=== PATIENT | male | born 1950 | race Caucasian/White ===

== ENCOUNTER 2016-04-14 07:08 | Day surgery (SDC) | payer OTHER ==
[2016-04-10 11:28] VITALS: BMI 25.8
[~2016-04-14 07:08] MED LIST: LACTATED RINGERS 1,000 ML IV SCH; LIDOCAINE 1% 20 ML VIAL (10MG/ML) FOR IV START INTRADERMA PRN
[2016-04-14 08:18] VITALS: TEMP 98.1
[2016-04-14] MEDS ORDERED: PROPOFOL 10 MG/ML 20 ML VIAL IV ONE (08:35)
--- NOTE | 2016-04-14 09:12 | P.PCN ---
Date of Procedure: 04/14/16 Procedure(s) Performed: Procedure: Total colonoscopy. Preoperative diagnosis: Screening for neoplasia, patient has family history of colon cancer in his father. Postoperative diagnosis: Mild diverticulosis with no evidence of acute diverticulitis, strictures, polyps or cancer. Preparation: HalfLytely prep. Sedation: Was provided by anesthesia. Brief clinical history: The patient is a 65-year-old male who is referred for this evaluation for screening for neoplasia because of family history of colon cancer in his father. He had his first exam around 6 years ago. The patient has no abdominal complaints, bleeding or anemia. Procedure: With the patient on his left lateral decubitus position and after informed consent and adequate sedation, the perianal area was inspected and it did not show any fissures or fistulas. There were no masses felt on digital rectal examination. The Olympus CFQ 160L video colonoscope was initially used, however, I was not able to advance it safely in the distal sigmoid area so I exchanged it for a pediatric colonoscope. The Olympus PCF H180 AL videocolonoscope was then inserted in the rectum in the usual fashion and advanced through the sigmoid with no difficulty. The endoscope was advanced to the cecum. The mucosa appeared healthy. There was an occasional diverticular orifice seen on the right side but there was no evidence of acute diverticulitis or strictures. No obvious diverticular disease was seen on the left side. No polyps or tumors were noted. I retroflexed endoscope in the rectum before the endoscope was withdrawn. The patient tolerated the procedure well. Plan: The patient was reassured. Discussed dietary measures. He will follow up with you as planned and I recommended repeat exam in 5 years.
[2016-04-14 09:25] VITALS: BP 117/69; PULSE 88; RESP 18
== END 2016-04-14 09:42 | disposition home or self-care (01) ==
LOC: ORWHC2ENDO 07:08
DX: Z12.11 Encounter for screening for malignant neoplasm of colon (principal); K57.30 Diverticulosis of large intestine without perforation or abscess without bleeding; Z80.0 Family history of malignant neoplasm of digestive organs; I10 Essential (primary) hypertension; F41.9 Anxiety disorder, unspecified; G43.909 Migraine, unspecified, not intractable, without status migrainosus; E78.5 Hyperlipidemia, unspecified; M06.9 Rheumatoid arthritis, unspecified; Z79.899 Other long term (current) drug therapy
CPT/HCPCS: J2704; G0105; 45378; 99153

== ENCOUNTER → 2020-12-07 | Outpatient (CLI) | payer MEDICARE ==
--- NOTE | 2020-12-08 09:14 | MR ---
EXAMINATION TYPE: MR cspine/lspine wo con DATE OF EXAM: 12/07/2020 COMPARISON: Prior MRI lumbar spine July 25, 2013 HISTORY: Spondylosis, radiculopathy, headache, and neck pain. TECHNIQUE: Multiplanar, multisequence imaging of the cervical and lumbar spine are performed without IV contrast. FINDINGS: C-SPINE: FINDINGS: There is levoconvex scoliosis centered mid cervical spine and dextroconvex scoliosis center ed visualized upper thoracic spine. Sagittal images of the cervical spine show the craniocervical bryan ction to appear within normal limits. The cervical and upper thoracic spinal cord is normal in calib er and signal. The vertebral body heights are normal. Slight grade 1 retrolisthesis C2 on C3. Modera te disc space narrowing C2-C3. Yrzy-sa-ncudwrdi disc space narrowing C4-C5 and C6-C7 levels. Moderate to severe multilevel anterior spurring. The bone marrow signal intensity is overall heterogeneous wi th multiple areas of Modic type I and type II endplate changes. Axial images show subtle spondylolisthesis and uncovertebral facet degenerative changes causing mild bilateral neural foraminal narrowing. Axial images at C3-C4 level cervical vertebral facet degenerative changes with broad-based posterior disc protrusion, there is advanced right and moderate left-sided neural foraminal narrowing. Axial images at C4-C5 level showed broad based posterior disc protrusion effacing anterior thecal sac with uncovertebral facet degenerative changes, there is effacement of the anterior thecal sac and ad vanced bilateral neural foraminal narrowing. Axial images at C5-C6 levels. Uncovertebral facet degenerative changes with broad-based posterior dis c protrusion, there is effacement of the anterior thecal sac and advanced bilateral neural foraminal narrowing. Axial images at the C6-C7 level show right paracentral disc protrusion with some uncovertebral facet degenerative changes causing moderate bilateral neural foraminal narrowing. Axial images at C7-T1 level show mild broad-based posterior disc protrusion with mild to moderate cristiano ateral neural foraminal narrowing. IMPRESSION: Scoliosis with multilevel fairly moderate to advanced multilevel degenerative changes as detailed above. L-SPINE: Sagittal images of the lumbar spine show vertebral body heights to remain satisfactory. Stable slight grade 1 anterolisthesis L3 on L4. Increased multilevel disc desiccation. Persistent moderate disc sp rene narrowing L3-L4 level . Persistent mild to moderate multilevel anterior spurring. The conus medul alfie is normal in position and signal extending inferior L1 level. The bone marrow signal intensity is within normal limits. Axial images at T12-L1 remain within normal limits. Axial images at L1-L2 level show new left paracentral disc protrusion and mild facet arthropathy bila terally. Mild effacement anterior thecal sac. Patent bilateral neural foramina. Axial images at L2-L3 level show new [id number]-yn-vfydqqjx broad disc bulge with focal central disc protru daria. There is jyfo-of-rjtsuycs facet arthropathy and ligamentum flavum hypertrophy. There is effacem ent of the anterior thecal sac and moderate bilateral anterior inferior neuroforaminal narrowing, lef t greater than right. Encroachment on the foraminal left L2 nerve difficult to exclude. Axial images at L3-L4 level redemonstrate spondylolisthesis with more prominent moderate to severe br oad-based posterior disc protrusion. There is moderate to severe facet arthropathy and ligamentum fla vum hypertrophy. There is increasing spinal canal effacement of stenosis at this level axial image 13 . There is moderate right and mild to moderate left-sided neural foraminal narrowing. Findings progre ssed from prior. Axial images at L4-L5 level shows mild/moderate facet arthropathy and ligamentum flavum hypertrophy. There is focal central disc protrusion mildly effacing anterior thecal sac. There is moderate right a nd mild to moderate left-sided neural foraminal narrowing. Findings progressed from prior. Axial images at L5-S1 level show mtdo-lp-icyenoyg facet arthropathy bilaterally. Spinal canal is pres erved. Patent bilateral neural foramina. No significant change from prior. A simple appearing thin-walled 1.9 cm cyst posteriorly right kidney image 27 slightly increased in si ze from prior. IMPRESSION: Stable L3-L4 spondylolisthesis. Multilevel degenerative changes as detailed above with in terval degenerative progression from 2014 MRI noted
== END | disposition home or self-care (01) ==
LOC: RADMRIMAIN 07:56
PROVIDERS: ATTEND Family Medicine
DX: M51.16 Intervertebral disc disorders with radiculopathy, lumbar region (principal); M43.16 Spondylolisthesis, lumbar region; M47.26 Other spondylosis with radiculopathy, lumbar region; M50.223 Other cervical disc displacement at C6-C7 level; M47.22 Other spondylosis with radiculopathy, cervical region; M43.12 Spondylolisthesis, cervical region; M41.82 Other forms of scoliosis, cervical region
CPT/HCPCS: 72141; 72148

== ENCOUNTER → 2020-12-18 | Outpatient (CLI) | payer OTHER ==
--- NOTE | 2020-12-18 12:10 | US ---
EXAMINATION TYPE: US duplex aorta DATE OF EXAM: 12/18/2020 COMPARISON: NONE CLINICAL HISTORY: 70-year-old male Z13.6 SCREENING FOR CARDIOVASCULAR DISEASE. AAA screening. TECHNIQUE: Multiple sonographic images of the abdominal aorta are obtained. FINDINGS: EXAM MEASUREMENTS: Abdominal Aorta: Proximal: 2.2 x 2.2 cm. Mid: 2.1 x 1.7 cm. Distal: 1.7 x 2.0 cm. Bifurcation: Right: 1.1 x 1.2 cm. Left: 1.0 x 1.2 cm. Mild atherosclerotic irregularity is present. IMPRESSION: Atherosclerotic irregularity but without any sonographic evidence for AAA.
== END | disposition home or self-care (01) ==
LOC: RADUSWWP 07:00
PROVIDERS: ATTEND Family Medicine
DX: Z13.6 Encounter for screening for cardiovascular disorders (principal); I70.0 Atherosclerosis of aorta
CPT/HCPCS: 93979

== ENCOUNTER → 2024-01-20 | Outpatient (CLI) | payer MEDICARE ==
--- NOTE | 2024-01-20 14:59 | MR ---
EXAMINATION TYPE: MR cspine/lspine wo con DATE OF EXAM: 01/20/2024 COMPARISON: 12/07/2020 HISTORY: 73-year-old male M43.16 Neck pain, left arm pain. Low back pain that radiates down left leg. TECHNIQUE: Multiplanar, multisequence imaging of the cervical and lumbar spine is performed without I V contrast. FINDINGS: CERVICAL SPINE: Chronic patchy white matter signal changes incidentally noted within the bernice. No craniocervical junction abnormality, predental space widening, or prevertebral soft tissue swellin g. There is moderate degenerative disc disease throughout with desiccated, narrowed, and bulging discs w ith disc osteophyte complex formation. Additional ligamentum flavum thickening throughout the upper and mid cervical spine. Multilevel mild to moderate facet joint arthropathy is present throughout. More moderate to advanced uncovertebral joint arthropathy mid to lower cervical spine. Degenerative grade 1 retrolisthesis C3-C4 and C4-C5. Vertebral body heights are preserved. Heterogeneous red marrow hyperplasia is similar along with some scattered Modic type I edematous endp late changes upper and mid cervical spine. Combination disc osteophyte complex and ligamentum flavum thickening results in mild to moderate spin al canal stenosis at C3-C4 and C4-C5 with abutment of both the dorsal and ventral cord but no signifi cant cord flattening. There is mild narrowing at C2-C3, C5-C6, and C6-C7. No rocio cord compression or canal compromise. No definite abnormal cord signal change. At C2-C3, resulting in mild right neuroforaminal stenosis. At C3-C4, changes resulting in severe right and moderate left neural foraminal stenosis. At C4-C5, resulting in moderate bilateral neuroforaminal stenosis. At C5-C6, changes resulting in severe left greater than right neural foraminal stenosis. At C6-C7, there is moderate to severe right and moderate left neuroforaminal stenosis. At C7-T1, there is moderate left and vchh-zv-aykhwixa right neuroforaminal stenosis. Overall changes appear relatively similar to prior. LUMBAR SPINE: Moderate degenerative disc disease with desiccated, bulging, and mildly narrowed disks throughout the lumbar spine. Moderately advanced hypertrophic facet arthropathy is also present. Ligamentum flavum thickening grea test at L3-L4. There is nearly grade 2 anterolisthesis at L3-L4. Trace grade 1 retrolisthesis L2-L3. Remaining align ment is maintained. Diffusely diminished marrow signal compatible with red marrow hyperplasia. Conus medullaris is normal. Vertebral body heights are preserved. Combination of anterolisthesis, ligamentum flavum thickening, diffuse disc bulge causes severe focal spinal canal stenosis at L3-L4 similar to slightly worsened from 12/07/2020. A severe stenosis results in extensive redundancy of the cauda equina nerve roots just above Additional mild overall spinal canal stenosis L1-L2, L2-L3, and L4-L5 are also fairly similar. On the left, changes of the abdomen moderate neuroforaminal stenosis at L2-L3. Mild to moderate at L2 -L4 and L4-L5. On the right, resulting in slight worsened moderate to severe neuroforaminal stenosis at L3-L4 and si milar moderate at L4-L5. Similar moderate at L2-L3 as well. Right-sided renal cortical cysts measuring up to 2.6 cm. COMBINED IMPRESSION: CERVICAL SPINE: 1. OVERALL SIMILAR MODERATE MULTILEVEL SPONDYLOTIC CHANGE. SOME SCATTERED EDEMATOUS MODIC TYPE I ENDP LATE CHANGE UPPER TO MID CERVICAL SPINE. DEGENERATIVE GRADE 1 RETROLISTHESIS C3-C4 AND C4-C5. 2. CHANGES RESULTS IN [id number] SPINAL CANAL STENOSIS AT C3-C4 AND C4-C5 WITH ABUTMENT OF BOTH THE DORSAL AND VENTRAL CORD. MILD OVERALL SPINAL CANAL STENOSIS C2-C3, C5-C6, AND C6-C7. NO ROCIO CO RD COMPRESSION OR MYELOPATHIC CORD SIGNAL CHANGE. 3. VARIABLE NEUROFORAMINAL STENOSES OUTLINED ABOVE. LUMBAR SPINE: 4. Moderate multilevel degenerative disc disease with advanced hypertrophic facet arthropathy. Nearly grade 2 degenerative anterolisthesis at L3-L4 is similar. Trace grade 1 retrolisthesis L2-L3 appears increased. 5. Combination of anterolisthesis, diffuse disc bulge, and ligamentum flavum thickening at L3-L4 cont ributes to a similar to slightly worsened very severe focal spinal canal stenosis. The canal compromi se results in redundancy of the cauda equina nerve roots just above. 6. Variable neuroforaminal stenoses as outlined above, slightly worsened moderate to severe on the ri ght at L3-L4. [facility], , 01/20/2024 2:57 PM
== END | disposition home or self-care (01) ==
LOC: RADMRIMAIN 09:43
PROVIDERS: ATTEND Neurological Surgery
DX: M47.812 Spondylosis without myelopathy or radiculopathy, cervical region (principal); M54.16 Radiculopathy, lumbar region; M43.16 Spondylolisthesis, lumbar region; M25.78 Osteophyte, vertebrae; M43.19 Spondylolisthesis, multiple sites in spine; M48.061 Spinal stenosis, lumbar region without neurogenic claudication; M51.369 Other intervertebral disc degeneration, lumbar region without mention of lumbar back pain or lower extremity pain
CPT/HCPCS: 72141; 72148

== ENCOUNTER → 2024-03-27 | Outpatient (CLI) | payer MEDICARE ==
--- NOTE | 2024-03-27 12:06 | XR ---
EXAMINATION TYPE: XR chest 2V DATE OF EXAM: 03/27/2024 10:09 AM COMPARISON: None. CLINICAL INDICATION: Male, 73 years old with history of M48.061 spinal stenosis pre surgical, TECHNIQUE: XR chest 2V view(s) obtained. FINDINGS: The heart size is normal. The pulmonary vasculature is normal. The lungs are clear. There is hyperinflation and flattening of the diaphragms compatible with emphys ematous change IMPRESSION: 1. No acute pulmonary process. 2. Correlate for emphysematous change. [facility], , 03/27/2024 12:03 PM
== END | disposition home or self-care (01) ==
LOC: RADXRMAIN 09:46
PROVIDERS: ATTEND Neurological Surgery
DX: M48.061 Spinal stenosis, lumbar region without neurogenic claudication (principal)
CPT/HCPCS: 71046